=== PATIENT | male | born 1990 | race Caucasian/White ===

== ENCOUNTER 2020-03-02 09:43 | Outpatient (CLI) | payer OTHER ==
[2020-03-02] MEDS ORDERED: OMNIPAQUE 350 MG/ML, 100ML BOTTLE ONE (11:11)
== END 2020-03-02 23:59 | disposition home or self-care (01) ==
LOC: RAD 09:43 → MERGE 10:00 → RAD 23:59
DX: R07.9 Chest pain, unspecified (principal); Z82.49 Family history of ischemic heart disease and other diseases of the circulatory system
CPT/HCPCS: 75574; Q9967